=== PATIENT | male | born 1950 | race African-American/Black ===

== ENCOUNTER 2022-01-05 05:55 | Outpatient (CLI) | payer MEDICARE | END 2022-01-05 23:59 | disposition home or self-care (01) | LOC: LAB 05:55 | PROVIDERS: ATTEND Orthopaedic Surgery Sports Medicine | DX: Z01.812 Encounter for preprocedural laboratory examination (principal); Z20.822 Contact with and (suspected) exposure to COVID-19 ==

== ENCOUNTER 2022-01-06 06:37 | Day surgery (SDC) | payer MEDICARE ==
[2022-01-06] MEDS ORDERED: ONDANSETRON 4 MG/2 ML VIAL IV ONE (06:38)
[2022-01-06] MEDS ORDERED: PHENYLEPHRINE 10 MG/1 ML VIAL IV ONE (06:38)
[2022-01-06] MEDS ORDERED: GLYCOPYRROLATE 0.2 MG/ML VIAL IJ ONE (06:38)
[2022-01-06] MEDS ORDERED: NEOSTIGMINE METHYLSULFATE 10 MG/10 ML VIAL IV ONE (06:38)
[2022-01-06] MEDS ORDERED: PROPOFOL 200 MG/20 ML BOTTLE IV ONE (06:38)
[2022-01-06] MEDS ORDERED: DEXAMETHASONE SOD PHOSPHATE 4 MG INJ IV ONE (06:38)
[2022-01-06] MEDS ORDERED: CEFAZOLIN 1 G VIAL IV ONE (06:38)
[2022-01-06] MEDS ORDERED: SUCCINYLCHOLINE CHLORIDE 200 MG/10 ML VIAL IV ONE (06:38)
[2022-01-06] MEDS ORDERED: LIDOCAINE-MPF 2% 5 ML VIAL IJ ONE (06:38)
[2022-01-06 08:09] LABS: *BILIRUBIN,URIN NEGATIVE (NEGATIVE); *BLOOD, URINE NEGATIVE (NEGATIVE); *CLARITY,URINE CLEAR (CLEAR); *COLOR,URINE YELLOW (YELLOW); *KETONES,URINE NEGATIVE (NEGATIVE); *UROBILINOGEN,URINE 0.2 E.U./dl (NORMAL); LEUKOCYTE ESTERASE ,URINE NEGATIVE (NEGATIVE); NITRITE, URINE NEGATIVE (NEGATIVE); PH,URINE 5.5 (5.0-8.0); UGLUCOSE NEGATIVE (NEGATIVE)
[2022-01-06] MEDS ORDERED: BUPIVACAINE/EPI PF 0.25% 30 ML VIAL ONE (08:46)
[2022-01-06] MEDS ORDERED: FENTANYL CITRATE 250 MCG/5 ML AMPUL ONE (08:52)
[2022-01-06] MEDS ORDERED: ROCURONIUM BROMIDE 50 MG/5 ML VIAL ONE (08:52)
[2022-01-06] MEDS ORDERED: SEVOFLURANE 250 ML BOTTLE ONE (09:05)
[2022-01-06] MEDS ORDERED: HYDROMORPHONE 1 MG/1 ML DISP.SYRIN ONE (10:47)
[2022-01-06] MEDS ORDERED: ONDANSETRON 4 MG/2 ML VIAL ONE (10:48)
[2022-01-06] MEDS ORDERED: FENTANYL CITRATE 100 MCG/2 ML AMPUL ONE (10:57)
[2022-01-06] MEDS ORDERED: ACETAMINOPHEN ES 500 MG TABLET ONE (11:55)
== END 2022-01-06 13:14 | disposition home or self-care (01) ==
LOC: DS 06:37
PROVIDERS: ATTEND Orthopaedic Surgery Sports Medicine
DX: S43.401A Unspecified sprain of right shoulder joint, initial encounter (principal); M75.01 Adhesive capsulitis of right shoulder; I10 Essential (primary) hypertension; E11.9 Type 2 diabetes mellitus without complications; Z79.84 Long term (current) use of oral hypoglycemic drugs; Z79.899 Other long term (current) drug therapy; Z98.890 Other specified postprocedural states; Z72.89 Other problems related to lifestyle; X58.XXXA Exposure to other specified factors, initial encounter; Y93.89 Activity, other specified; Y92.89 Other specified places as the place of occurrence of the external cause; Y99.8 Other external cause status
CPT/HCPCS: 23700; 29825; 81003; J1170; J2405; J3010 ×2; J3490 ×2; A4565; A4649; A4663; A9150; J0330; J0690; J1100; J2370; J7030

== ENCOUNTER 2024-07-18 07:52 | Outpatient (CLI) | payer MEDICARE ==
[2024-07-18 08:22] LABS: BASOPHILS % (AUTO) 0.6 % (0.0-2.0); EOSINOPHILS % (AUTO) 0.8 % (0.0-7.0); HEMATOCRIT 40.2 % (36.7-47.1); HEMOGLOBIN 13.4 g/dL (12.5-16.3); LYMPHOCYTES # (AUTO) 1.7 K/uL (0.8-4.8); MEAN CORPUSCULAR HEMOGLOBIN 31.2 uug (23.8-33.4); MEAN CORPUSCULAR HGB CONC 33 g/dL (32.5-36.3); MEAN CORPUSCULAR VOLUME 93.6 fL (73.0-96.2); MONOCYTES # (AUTO) 0.5 K/uL (0.1-1.30); MONOCYTES % (AUTO) 9.9 % (0.0-11.0); NEUTROPHILS # (AUTO) 2.4 K/uL (1.8-8.9); NEUTROPHILS % (AUTO) 51.7 % (38.5-71.5); PLATELET COUNT (AUTO) 201 K/uL (152-348); RED BLOOD CELL COUNT(AUTO) 4.29 MIL/uL (4.06-5.63); RED CELL DISTRIBUTION WIDTH 14.4 % (12.1-16.2); WHITE BLOOD COUNT (AUTO) 4.6 K/uL (3.6-10.2)
[2024-07-18 08:31] LABS: *BLOOD, URINE NEGATIVE (NEGATIVE); *CLARITY,URINE CLEAR (CLEAR); *COLOR,URINE YELLOW (YELLOW); *KETONES,URINE TRACE (NEGATIVE); *PROTEIN,URINE NEGATIVE (NEGATIVE); *UROBILINOGEN,URINE 0.2 E.U./dl (NORMAL); LEUKOCYTE ESTERASE ,URINE NEGATIVE (NEGATIVE); NITRITE, URINE NEGATIVE (NEGATIVE); PH,URINE 5.5 (5.0-8.0); UGLUCOSE NEGATIVE (NEGATIVE)
[2024-07-18 08:36] LABS: *BILIRUBIN,URIN 1+ (NEGATIVE)
[2024-07-18 08:50] LABS: BACTERIA,URINE FEW /HPF (NONE SEEN); RBC,URINE 0-3 /HPF (0-3); SQUAMOUS EPITHELIAL CELL,UR MANY /HPF (NONE SEEN); WBC,URINE 0-3 /HPF (0-3)
[2024-07-19 10:24] LABS: ALANINE AMINOTRANSFERASE 21 U/L (16-63); ALBUMIN 3.9 g/dL (3.4-5.0); ALKALINE PHOSPHATASE 63 U/L (50-136); BILIRUBIN,TOTAL 0.3 mg/dL (0.2-1.0); CALCIUM 9.2 mg/dL (8.5-10.1); CARBON DIOXIDE 27 mmol/L (21-32); CHLORIDE 108 mmol/L (98-107); CREATININE 1.2 mg/dL (0.6-1.3); GLUCOSE 81 mg/dL (74-106); POTASSIUM 4.6 mmol/L (3.5-5.1); SODIUM SERUM 145 mmol/L (136-145); TOTAL PROTEIN, SERUM 7.6 g/dL (6.4-8.2); UREA NITROGEN, BLOOD 18 mg/dL (7-18)
[2024-07-19 11:25] LABS: ASPARTATE AMINOTRANSFERASE 28 U/L (15-37)
== END 2024-07-18 23:59 | disposition home or self-care (01) ==
LOC: LAB 07:52
PROVIDERS: ATTEND Orthopaedic Surgery Sports Medicine
DX: Z01.818 Encounter for other preprocedural examination (principal); J98.4 Other disorders of lung; J98.6 Disorders of diaphragm; N20.2 Calculus of kidney with calculus of ureter; Z96.612 Presence of left artificial shoulder joint
CPT/HCPCS: 36415; 71046; 85025; 85730; 93005

== ENCOUNTER 2024-07-21 09:51 | Day surgery (SDC) | payer MEDICARE ==
[2024-07-21] MEDS ORDERED: OXYCODONE/APAP 5-325 MG TABLET ONE (10:44)
[2024-07-21] MEDS ORDERED: VANCOMYCIN 1000 MG VIAL ONE (12:57)
[2024-07-21] MEDS ORDERED: BUPIVACAINE PF 0.5% 30 ML VIAL ONE (13:23)
[2024-07-21] MEDS ORDERED: FENTANYL CITRATE 100 MCG/2 ML AMPUL ONE (14:09)
[2024-07-21 15:20] VITALS: TEMP 97.7
== END 2024-07-21 15:30 | disposition home or self-care (01) ==
LOC: DS 09:51
PROVIDERS: ATTEND Orthopaedic Surgery Sports Medicine
DX: M20.5X2 Other deformities of toe(s) (acquired), left foot (principal); I10 Essential (primary) hypertension; E11.9 Type 2 diabetes mellitus without complications; Z79.899 Other long term (current) drug therapy; Z98.890 Other specified postprocedural states
CPT/HCPCS: 28289; 73620; 76000; J3010; J3370; J3490; J7120; A4649; A4663